=== PATIENT | female | born 1995 | race African-American/Black ===

== ENCOUNTER 2017-02-22 18:25 | Emergency (ER) | payer MEDICAID ==
[2017-02-22 18:28] VITALS: BP 128/74; PULSE 101; RESP 12; TEMP 100.4; O2SAT 97
[2017-02-22] MEDS ORDERED: IBUPROFEN 600 MG TAB PO ONE (20:30)
--- NOTE | 2017-02-22 20:33 | PD ---
HPI Chief Complaint: ENT Complaint Time Seen by Provider: 20:25 Travel History International Travel<30 days: No Contact w/Intl Traveler<30days: No Traveled to known affect area: No History of Present Illness HPI 21-year-old white female presents emergency Department with a 24-hour history of subjective fever and chills, headache, sore throat, nasal congestion, cough and general malaise. Positive myalgias and arthralgias. She states that she has not taken anything for his symptoms as of yet. She denies any ear pain, shortness of breath, wheezing, nausea, vomiting, diarrhea, abdominal pain or urinary symptoms. Symptoms are moderate. No alleviating factors. Worsened by cough and swallowing. PFSH Past Medical History Medical History: Denies Significant Hx Tetanus Vaccination: < 5 Years ?: Not Past Surgical History Surgical History: No Previous Surgery Social History Alcohol Use: No Tobacco Use: No Allergies-Medications (Allergen,Severity, Reaction): Coded Allergies: No Known Allergies (Unverified , 02/22/17) Review of Systems Except as stated in HPI: all other systems reviewed are Neg Physical Exam Narrative GENERAL: Well-developed, well-nourished in no acute distress. Nontoxic appearing. HEAD: Normocephalic, atraumatic. EYES: Pupils equal round and reactive. Extraocular motions intact. No scleral icterus. No injection or drainage. ENT: TMs clear without erythema. The external auditory canals clear. Nose: clear . Posterior pharynx is pink and moist. No tonsillar edema or exudate. Uvula midline. Airway patent. NECK: Trachea midline.Supple, nontender, moves head freely. No central bony tenderness or spasm. CARDIOVASCULAR: Regular rate and rhythm without murmurs, gallops, or rubs. RESPIRATORY: Clear to auscultation. Breath sounds equal bilaterally. No wheezes , rales, or rhonchi. GASTROINTESTINAL: Abdomen soft, non-tender, nondistended. No hepato-splenomegaly , or palpable masses. No guarding. EXTREMITIES: No clubbing, cyanosis, or edema. No joint tenderness, effusion, or edema noted. BACK: Nontender without deformity or crepitance. No flank tenderness. Data Data Last Documented VS Vital Signs Date Time Temp Pulse Resp B/P (MAP) Pulse Ox O2 Delivery O2 Flow Rate FiO2 02/22/17 18:28 100.4 101 12 128/74 (92) 97 Orders Orders Group A Rapid Strep Screen (02/22/17 18:30) Influenzae A/B Antigen (02/22/17 18:30) Strep Culture (Group A) (02/22/17 18:32) Ed Discharge Order (02/22/17 20:29) Ibuprofen (Motrin) (02/22/17 20:30) MDM Medical Decision Making Medical Screen Exam Complete: Yes Emergency Medical Condition: Yes Medical Record Reviewed: Yes Differential Diagnosis MDM: High Differential diagnoses: Pneumonia, bronchitis, URI, asthma, RAD, influenza, influenza-like illness, strep throat Narrative Course Patient's rapid strep is negative. Influenza is negative. This is influenza-like illness. Patient is given Motrin 600 mg by mouth. Diagnosis Primary Impression: Influenza-like illness Patient Instructions: General Instructions Departure Forms: School Release, Please excuse from school until (free text option): No school 5 days. Tests/Procedures Additional Instructions: Rest. Increase fluids. 3 Advil every 6 hours.. Robitussin Cough and cold Afrin nasal spray for the next 3 days only. Followup with your Dr. in one week. Return to the ER for any problems. Med/Other Pt SpecificInfo: Prescription(s) given Disposition: 01 DISCHARGE HOME Condition: Stable Minesh Rocha Feb 22, 2017 20:33
== END 2017-02-22 21:11 | disposition home or self-care (01) ==
LOC: NEPK 18:25
DX: J11.1 Influenza due to unidentified influenza virus with other respiratory manifestations (principal); R51 Headache
CPT/HCPCS: 87081; 87804; 87880; 99283